=== PATIENT | female | born 1990 | race Caucasian/White ===

== ENCOUNTER 2016-12-03 10:06 | Emergency (ER) | payer MEDICAID, OTHER ==
[2016-12-03 10:53] LABS: ABSOLUTE NEUTROPHIL COUNT 4.2 K/mm3 (1.8-7.7); BASO % 0.3 % (0.2-1.0); EOS # 0.1 (0.0-0.5); EOS % 0.7 % (0.9-2.9); HEMATOCRIT 40.8 % (37.0-47.0); HEMOGLOBIN 13.8 gm/l (12.0-16.0); IMM NEUT% 0.3 % (0-1); LYMPH % 27.7 % (15-45); MEAN CORPUSCULAR HEMOGLOBIN 28.4 pg (27.0-31.0); MEAN CORPUSCULAR HGB CONC 33.8 g/dl (33.0-37.0); MONO # 0.9 (0.0-0.8); MONO % 12.1 % (4-12); NEUT % 58.9 % (43-75); PLATELET COUNT 340 K/mm3 (130-400); RED CELL DISTRIBUTION WIDTH 12.2 % (11.5-14.5)
--- NOTE | 2016-12-03 11:34 | US ---
Exam: Complete obstetric ultrasound less than 14 weeks COMPARISON: None INDICATION: Early with vaginal bleeding. History of endometriosis. Findings: Transabdominal and transvaginal obstetric ultrasound less than 14 weeks was obtained. Real-time sonographic imaging demonstrated a single live intrauterine with a heart rate of 120 bpm. Haysi-rump length of 5 mm correlates with a gestational age of 6 weeks 2 days and a sonographic KOURTNEY of 07/27/2017. This is within 3 days of clinical dating. Mean sac diameter is 1.6 cm which correlates with a gestational age of 5 weeks 6 days. Normal yolk sac is seen. Right ovary measures 4.1 x 2.3 x 3.7 cm and the left ovary measures 2.7 x 3.8 x 3.6 m and is unremarkable. Corpus luteum is present on the left. There is no separate adnexal mass. Blood flow is present within both ovaries. There is a trace amount of free fluid in left adnexa, within physiologic range. IMPRESSION: Single live intrauterine of approximately 6 weeks 2 days gestation with a heart rate of 120 beats for minute. Sonographic KOURTNEY is 07/27/2017. Report was uploaded to the EMR at 1130 hours 12/03/2016.
== END 2016-12-03 13:52 | disposition home or self-care (01) ==
LOC: ED 10:06
DX: O20.0 Threatened abortion (principal); O26.891 Other specified pregnancy related conditions, first trimester; J45.909 Unspecified asthma, uncomplicated; O99.341 Other mental disorders complicating pregnancy, first trimester; F41.9 Anxiety disorder, unspecified; Z3A.01 Less than 8 weeks gestation of pregnancy

== ENCOUNTER 2017-01-07 21:06 | Emergency (ER) | payer MEDICAID, OTHER ==
[2017-01-07 22:11] LABS: ABSOLUTE NEUTROPHIL COUNT 9.6 K/mm3 (1.8-7.7); BASO % 0.2 % (0.2-1.0); HEMATOCRIT 39.9 % (37.0-47.0); HEMOGLOBIN 13.5 gm/l (12.0-16.0); IMM NEUT # 0.1 K/mm3 (0-0.2); IMM NEUT% 0.6 % (0-1); LYMPH % 8.8 % (15-45); MEAN CELL VOLUME 82.8 fl (81.0-99.0); MEAN CORPUSCULAR HGB CONC 33.8 g/dl (33.0-37.0); MEAN PLATELET VOLUME 9.3 fl (7.4-10.4); MONO # 0.2 (0.0-0.8); NEUT % 88.4 % (43-75); PLATELET COUNT 319 K/mm3 (130-400); RED CELL DISTRIBUTION WIDTH 12.3 % (11.5-14.5)
[2017-01-07 22:38] LABS: ALB/GLOB RATIO 1.5 (>1.0); ALBUMIN 4.2 gm/dL (3.5-5.7); CALCIUM 9.7 mg/dL (8.6-10.3)
[2017-01-07 23:41] LABS: SPECIFIC GRAVITY 1.015 (1.001-1.030); URINE BILIRUBIN NEGATIVE (NEGATIVE); URINE BLOOD 4+ (NEGATIVE); URINE GLUCOSE (UA) NEGATIVE (NEGATIVE); URINE LEUKOCYTE ESTERASE NEGATIVE (NEGATIVE); URINE NITRITE NEGATIVE (NEGATIVE); URINE PROTEIN NEGATIVE (NEGATIVE); URINE UROBILINOGEN NORMAL (0-1 mg/dl)
[2017-01-07 23:46] LABS: URINE APPEARANCE SL CLOUDY; URINE COLOR YELLOW
[2017-01-07 23:54] LABS: URINE BACTERIA RARE; URINE EPITHELIAL CELLS 0-2 /hpf; URINE WBC 0-2 /hpf
--- NOTE | 2017-01-08 08:17 | US ---
OB COMP <14 WKS, OB TRANSVAGINAL HISTORY: Bleeding with . The patient is expected to be at 11 weeks 5 days gestational age. COMPARISONS: 12/03/2016. FINDINGS: Transabdominal and transvaginal ultrasonography demonstrates an intrauterine fluid collection with a visible pole. The crown to rump length measures 5.18 cm, equivalent to 11 weeks 6 days gestational age. The calculated sonographic EDC is 07/23/2017. cardiac activity is identified with a heart rate of 164 bpm. There is a focus of adjacent suspected perigestational hemorrhage measuring 23 x 18 x 6 mm in size. The maternal right ovary measures 4.0 x 3.4 x 1.9 cm. The left ovary measures 2.8 x 2.8 x 3.9 cm. There is a small cyst identified within the left ovary measuring 1.6 cm in size. A nonvascular hypoechoic focus is seen within the maternal right ovary measuring 21 mm in greatest size. No pelvic free fluid is visualized. IMPRESSION: 1. A single live intrauterine gestation with mean ultrasound gestational age 11 weeks 6 days. The calculated sonographic EDC is 07/23/2017. 2. A suspected area of fundal perigestational hemorrhage. 3. A 1.6 cm maternal left ovarian cyst with a hypoechoic nonvascular focus measuring 2.1 cm also seen within the maternal right ovary, which may reflect a hemorrhagic or complicated cyst. The findings were called to the emergency room at 2310 hours, 01/07/2017, by [facility] radiology.
== END 2017-01-08 00:23 | disposition home or self-care (01) ==
LOC: ED 21:06
DX: O20.0 Threatened abortion (principal); Z3A.12 12 weeks gestation of pregnancy